=== PATIENT | female | born 1995 | race Caucasian/White ===

== ENCOUNTER 2022-08-22 11:10 | Emergency (ER) | payer MEDICAID ==
[~2022-08-22] VITALS: Ht 167.6 cm; Wt 108.0 kg
[2022-08-22 11:32] VITALS: BP 136/82
== END 2022-08-22 13:06 | disposition home or self-care (01) ==
LOC: ER 11:20
DX: N93.8 Other specified abnormal uterine and vaginal bleeding (principal); Z98.890 Other specified postprocedural states
CPT/HCPCS: 81025; 99282

== ENCOUNTER 2022-09-23 08:19 | Emergency (ER) | payer MEDICAID ==
[~2022-09-23] VITALS: Ht 167.6 cm; Wt 111.0 kg
[2022-09-23] MEDS: ACETAMINOPHEN 325MG TABLET PO ONE (09:32)
[2022-09-23] MEDS ORDERED: IBUP-2029 MT (10:40)
[2022-09-23] MEDS ORDERED: HYDR-4001 MT (10:40)
[2022-09-23 10:47] VITALS: BP 137/76
[2022-09-23] MEDS: HYDROCODONE/ACETAMINOPHEN 5/325MG TABLET PO NR (10:47)
== END 2022-09-23 11:19 | disposition home or self-care (01) ==
LOC: ER 08:19
DX: S52.092A Other fracture of upper end of left ulna, initial encounter for closed fracture (principal); S53.005A Unspecified dislocation of left radial head, initial encounter; W22.8XXA Striking against or struck by other objects, initial encounter; Y93.9 Activity, unspecified; Y92.9 Unspecified place or not applicable; Z98.890 Other specified postprocedural states
CPT/HCPCS: 29105; 73080; 73090; 73130; 81025; 99284; A4565

== ENCOUNTER 2023-06-07 13:09 | Emergency (ER) | payer MEDICAID ==
[~2023-06-07] VITALS: Ht 170.2 cm; Wt 109.0 kg
[~2023-06-07 13:09] MED LIST: HYDR-4001 MT; IBUP-2029 MT
[2023-06-07 13:34] VITALS: BP 124/89; PULSE 64; RESP 16; O2SAT 100
[2023-06-07 16:15] VITALS: TEMP 98.6
[2023-06-07] MEDS ORDERED: ACETAMINOPHEN 500MG TABLET PO ONE (16:15)
[2023-06-07] MEDS ORDERED: IBUP-2029 MT (17:29)
== END 2023-06-07 18:13 | disposition home or self-care (01) ==
LOC: ER 14:14
DX: S02.2XXA Fracture of nasal bones, initial encounter for closed fracture (principal); S09.90XA Unspecified injury of head, initial encounter; Z59.00 Homelessness unspecified; X58.XXXA Exposure to other specified factors, initial encounter; Y93.89 Activity, other specified; Y92.89 Other specified places as the place of occurrence of the external cause; Y99.8 Other external cause status
CPT/HCPCS: 70486; 81025; 99284

== ENCOUNTER 2024-01-28 16:54 | Emergency (ER) | payer MEDICAID ==
[~2024-01-28] VITALS: Ht 172.7 cm; Wt 97.0 kg
[~2024-01-28 16:54] MED LIST changes: +CEPH250C2 MT
[2024-01-28 17:07] VITALS: O2SAT 98
[2024-01-28 18:10] LABS: CLARITY URINE CLEAR (CLEAR); COLOR URINE ORANGE (YELLOW); GLUCOSE URINE NEGATIVE (NEGATIVE); KETONES URINE NEGATIVE (NEGATIVE); LEUKOCYTE ESTERASE URINE NEGATIVE (NEGATIVE); NITRITE URINE NEGATIVE (NEGATIVE); OCCULT BLOOD URINE 3+ (NEGATIVE); PH URINE 7.5 (4.5-8.0); PROTEIN URINE NEGATIVE (NEGATIVE); UROBILINOGEN URINE 0.2 E.U./dL (0.2-1.0)
[2024-01-28 18:57] LABS: BACTERIA URINE TRACE; SQUAMOUS EPITHELIAL CELL URINE FEW /lpf (RARE/1+)
[2024-01-28 18:58] LABS: RBC URINE TNTC /hpf (0-2); WBC URINE 0-2 /hpf (0-2)
[2024-01-28] MEDS: ACETAMINOPHEN 325MG TABLET PO ONE (19:11)
[2024-01-28 19:13] LABS: BASOPHILS % 0.5 % (0.0-2.0); EOSINOPHILS % 1.7 % (0.0-5.0); HEMATOCRIT. 30.3 % (36.0-48.0); HEMOGLOBIN. 10.1 g/dL (12.0-16.0); MEAN CORPUSCULAR HEMOGLOBIN 30.1 pg (28.0-32.0); MEAN CORPUSCULAR HGB CONC 33.5 g/dL (31.0-37.0); MEAN CORPUSCULAR VOLUME 89.8 fL (81.0-99.0); MONOCYTES % 5.7 % (2.0-8.0); NEUTROPHILS % 66.1 % (40.0-76.0); PLATELET 290 x1000/uL (130-400); RED BLOOD CELL COUNT 3.37 mill/uL (4.2-5.4); RED CELL DISTRIBUTION WIDTH 13.5 % (11.6-14.6); WHITE BLOOD COUNT 10.3 x1000/uL (4.5-11.0)
[2024-01-28 19:34] LABS: ALANINE AMINOTRANSFERASE 17 IU/L (10-49); ALBUMIN 4.2 g/dL (3.2-4.8); ASPARTATE AMINOTRANSFERASE 15 IU/L (<34); B-HCG QUANTITATIVE 10978 mIU/mL (<3); BILIRUBIN TOTAL 0.2 mg/dL (0.1-1.0); CARBON DIOXIDE 26 mEq/L (21-32); CHLORIDE 108 mEq/L (98-107); CREATININE 0.8 mg/dL (0.6-1.0); GLUCOSE 97 mg/dL (70-105); POTASSIUM 4.1 mEq/L (3.5-5.1); PROTEIN TOTAL 7.6 g/dL (6.0-8.3); SODIUM 138 mEq/L (136-145); UREA NITROGEN BLOOD 10 mg/dL (9-23)
[2024-01-28 20:30] VITALS: BP 122/62; PULSE 82; RESP 18; TEMP 98.4
== END 2024-01-28 20:34 | disposition home or self-care (01) ==
LOC: ER 16:54
DX: O20.0 Threatened abortion (principal); Z3A.09 9 weeks gestation of pregnancy
CPT/HCPCS: 36415; 76801; 80053; 81003; 84702; 85025; 99284

== ENCOUNTER 2024-08-17 19:12 | Emergency (ER) | payer MEDICAID ==
[~2024-08-17] VITALS: Ht 170.2 cm; Wt 105.0 kg
[2024-08-17 19:15] VITALS: O2SAT 100
[2024-08-17 19:39] VITALS: BP 127/78; PULSE 74; RESP 18; TEMP 98; O2SAT 100
[2024-08-17 20:11] LABS: CLARITY URINE CLEAR (CLEAR); COLOR URINE YELLOW (YELLOW); GLUCOSE URINE NEGATIVE (NEGATIVE); KETONES URINE NEGATIVE (NEGATIVE); LEUKOCYTE ESTERASE URINE NEGATIVE (NEGATIVE); NITRITE URINE NEGATIVE (NEGATIVE); OCCULT BLOOD URINE NEGATIVE (NEGATIVE); PROTEIN URINE NEGATIVE (NEGATIVE); SPECIFIC GRAVITY URINE 1.013 (1.005-1.030); UROBILINOGEN URINE 0.2 E.U./dL (0.2-1.0)
[2024-08-17 21:26] LABS: BASOPHILS % 0.3 % (0.0-2.0); EOSINOPHILS % 1.5 % (0.0-5.0); HEMATOCRIT. 36.2 % (36.0-48.0); HEMOGLOBIN. 11.6 g/dL (12.0-16.0); LYMPHOCYTES % 27.7 % (20.0-50.0); MEAN CORPUSCULAR HEMOGLOBIN 28.5 pg (28.0-32.0); MEAN CORPUSCULAR VOLUME 88.8 fL (81.0-99.0); MEAN PLATELET VOLUME 8.8 fl (7.4-10.4); NEUTROPHILS % 64.5 % (40.0-76.0); PLATELET 287 x1000/uL (130-400); RED BLOOD CELL COUNT 4.08 mill/uL (4.2-5.4); RED CELL DISTRIBUTION WIDTH 14.6 % (11.6-14.6); WHITE BLOOD COUNT 12.5 x1000/uL (4.5-11.0)
[2024-08-17 21:27] LABS: CHLORIDE 105 mEq/L (98-107); SODIUM 135 mEq/L (136-145)
[2024-08-17 21:28] LABS: CALCIUM 9.6 mg/dL (8.7-10.4); CARBON DIOXIDE 24 mEq/L (21-32)
[2024-08-17 21:33] LABS: CREATININE 0.8 mg/dL (0.6-1.0); GLUCOSE 87 mg/dL (70-105); UREA NITROGEN BLOOD 10 mg/dL (9-23)
[2024-08-17 21:35] LABS: ALANINE AMINOTRANSFERASE 20 IU/L (10-49); ALBUMIN 4.4 g/dL (3.2-4.8); ASPARTATE AMINOTRANSFERASE 15 IU/L (<34); BILIRUBIN TOTAL 0.3 mg/dL (0.1-1.0); PROTEIN TOTAL 7.7 g/dL (6.0-8.3)
[2024-08-17 21:47] LABS: B-HCG QUANTITATIVE 105535 mIU/mL (<3); BILIRUBIN DIRECT < 0.1 mg/dL (<=3.0)
== END 2024-08-17 23:03 | disposition home or self-care (01) ==
LOC: ER 19:12
DX: O30.001 Twin pregnancy, unspecified number of placenta and unspecified number of amniotic sacs, first trimester (principal); R10.2 Pelvic and perineal pain; F12.10 Cannabis abuse, uncomplicated; Z3A.01 Less than 8 weeks gestation of pregnancy; Z79.899 Other long term (current) drug therapy
CPT/HCPCS: 36415; 76801; 76802; 80048; 80076; 81003; 81025; 84702; 85025; 86850; 86900; 99284